=== PATIENT | male | born 1980 | race Caucasian/White ===

== ENCOUNTER 2023-11-19 14:22 | Inpatient (IN) | payer OTHER, SELFPAY ==
--- NOTE | 2023-11-19 | ECG_ITS ---
Test Reason : CHEST PAIN Blood Pressure : / mmHG Vent. Rate : 080 BPM Atrial Rate : 080 BPM P-R Int : 116 ms QRS Dur : 102 ms QT Int : 342 ms P-R-T Axes : 077 072 010 degrees QTc Int : 394 ms Normal sinus rhythm Possible Left atrial enlargement Nonspecific T wave abnormality Abnormal ECG No previous ECGs available Referred By: Sia Kathleen Electronically Signed By:PAPO MAYA
[2023-11-19 14:28] VITALS: BP 115/62; PULSE 102; RESP 20; TEMP 36.6; O2SAT 100; BMI 26.6
--- NOTE | 2023-11-19 14:29 | ED_ITS ---
HPI - General Adult General Chief complaint: Psychiatric Symptoms Stated complaint: Crisis Time Seen by Provider: 11/19/23 14:39 Source: patient and family Mode of arrival: ambulatory Limitations: no limitations History of Present Illness HPI narrative: 43 yo male with history of polysubstance abuse, depression/anxiety, who presents to the ER with his mother from home for evaluation of worsening depression and suicidal ideation. He states last night he took 5 xanax and other pills in an attempt to end his life. He admits to using crack daily. Last use last night. No alcohol. He states he used to be on medication for anxiety but his doctor stopped prescribing because he didn't go for follow ups. He states he has a lot going on and I need help. MD complaint: SI Onset (ago): unknown Relieving factors: none Exacerbating factors: none Associated symptoms: denies other symptoms Treatments prior to arrival: none Related Data Allergies Allergy/AdvReac Type Severity Reaction Status Date / Time No Known Allergies Allergy Verified 11/19/23 14:32 Review of Systems 2 Review of Systems: Yes all other systems are reviewed and are negative [facility] Social History Social History Smoked in Last 30 Days: Yes Use of substances other than those prescribed or required for medical reasons: Yes Substance Use Type: Crack/Cocaine and Painkillers Substance Use Frequency: Daily Advance Directives: No Advance Directives Information Provided: Yes Physical Exam ED Vital Signs: Vital Signs - 24 hr 11/19/23 14:28 11/19/23 16:32 Temperature 97.9 F 98.0 F Pulse Rate 102 H 99 Respiratory Rate 20 20 Blood Pressure 115/62 90/57 L Pulse Oximetry 100 100 Oxygen Delivery Method Room Air Room Air BMI result Body Mass Index 26.6 Appearance: Alert. Oriented X3. Tearful and crying Head: normocephalic, atraumatic. Eyes: Pupils equal, round and reactive to light. ENT: Pharynx normal. No tonsillar swelling or exudate. Neck: Normal inspection. Neck supple. CVS: Normal heart rate and rhythm. Pulses normal. Respiratory: No respiratory distress. Breath sounds normal. Abdomen: Soft and nontender. +BS x4 Skin: Skin warm and dry. Normal skin color. Normal skin turgor. No rashes. Extremities: No lower extremity edema. No joint swelling. Neuro/psych: Oriented X 3. No motor deficit. No sensory deficit. CN II-XII intact. Normal speech and cognition. Tearful, anxious, crying. terrible mood, +SI, No AH/VH Course Course Course Narrative: RME- 43 year old male presents for evaluation of depression with suicidal ideation. Patient reports taking 5 xanax yesterday in an attempt to end his life. He also used crack cocaine yesterday. Denies any other substance abuse. Plan for care team evaluation once medically cleared Reevaluation(s) Reevaluation #1: Physician observation started at 16:58. Patient placed in physician observation because patient is awaiting CARE team evaluation for the possible need of inpatient psych admission. At the time observation was started patient's vital signs were stable. Patient is alert and oriented. Neuro exam is non-focal. CV: RRR and lungs are clear. Will continue to monitor. Time: 16:58 Medications Administered Discontinued Medications Generic Name Dose Route Start Last Admin Trade Name Freq PRN Reason Stop Dose Admin Olanzapine 5 mg 11/19/23 14:43 11/19/23 15:39 Olanzapine 5 Mg Tablet PO 11/19/23 14:44 5 mg ONCE ONE Administration Medical Decision Making Medical Decision Making [facility] Narrative: 43 yo male with history of polysubstance abuse/depression/anxiety presenting with SI and attempt with taking xanax and other pills last night. VSS on arrival. Tearful and crying in triage. Once medically cleared will need to get evaluated by the CARE team Differential Diagnosis Differential Diagnoses: The differential diagnosis associated with the presentation includes substance induced mood disorder, acute psychosis, schizophrenia, schizoaffective disorder, PTSD, bipolar disorder, major depression with psychotic features Admission/Observation Consideration of admission/observation: Escalation of care including admission/observation considered Lab Data 11/19/23 15:12 11/19/23 15:12 Labs: Lab Results 11/19/23 11/19/23 Range/Units 15:12 15:16 WBC 9.9 (4.8-10.8) X10*3/uL RBC 5.00 (4.60-5.80) X10*6/uL Hgb 15.4 (14.0-18.0) g/dl Hct 45.0 (42.0-52.0) % MCV 90.0 (80.0-98.0) fL MCH 30.8 (27.0-33.0) pg MCHC 34.2 (31.0-36.0) g/dl RDW 12.8 (11.0-16.0) % Plt Count 262 (160-400) X10*3/uL MPV 9.9 (9.4-12.4) fL Immature Gran % (Auto) 0.2 (0.0-0.4) % Neut % (Auto) 71.1 (45-73) % Lymph % (Auto) 21.1 (20-40) % [place] % (Auto) 5.7 (2-11) % Eos % (Auto) 1.2 (0-4) % Baso % (Auto) 0.7 (0-2) % Lymph # (Auto) 2.1 (1.2-4.9) X10*3/uL [place] # (Auto) 0.6 (0.1-1.2) X10*3/uL Eos # (Auto) 0.1 (0.0-0.4) X10*3/uL Baso # (Auto) 0.1 (0.0-0.2) X10*3/uL Abs Immat Gran (auto) 0.02 (0.00-0.03) X10*3/uL Absolute Neuts (auto) 7.0 (2.0-8.3) x10*3/uL Absolute Nucleated RBC 0.000 (0.0-0.012) X10*3/uL Nucleated RBC % (auto) 0.0 (0.0-0.2) /100WBC Sodium 141 (135-145) mmol/L Potassium 3.9 (3.3-5.1) mmol/L Chloride 104 (96-108) mmol/L Carbon Dioxide 30 H (22-29) mmol/L Anion Gap 11 L (12-20) BUN 10 (9-16) mg/dL Creatinine 0.95 (0.5-1.4) mg/dL Estim Creat Clear Calc 85.4 Estimated GFR > 60 Random Glucose 74 (60-115) mg/dL Calcium 9.8 (8.4-10.2) mg/dL Total Bilirubin 0.5 (0.0-1.0) mg/dL AST 14 (5-37) U/L ALT 8 (0-40) U/L Alkaline Phosphatase 98 (39-117) U/L Total Protein 7.6 (6.5-8.0) g/dL Albumin 4.4 (3.5-5.0) g/dL Salicylates < 5.0 L (15-30) mg/dL Urine Opiates Screen Not Detected (Not Detect) Urine Fentanyl Screen Not Detected (Not Detect) Acetaminophen < 3 (<30) mcg/mL Ur Barbiturates Screen Not Detected (Not Detect) Ur Phencyclidine Scrn Not Detected (Not Detect) Ur Amphetamines Screen Not Detected (Not Detect) U Benzodiazepines Scrn POSITIVE H (Not Detect) Urine Cocaine Screen POSITIVE H (Not Detect) U Marijuana (THC) Screen POSITIVE H (Not Detect) Ethyl Alcohol < 10 mg/dL Independent Interpretation I performed an independent interpretation of an: EKG Interpretation: EKG with normal sinus rhythm, ventricular rate 80 beats per minute, normal QTC, normal ND interval, no ST segment elevations or depressions. Independent Historian Clinical information obtained from an independent historian. History obtained from or confirmed by: Parent Prescription Management I considered prescription management with: Other (antipsychotic) Chronic Conditions Patient?s care impacted by: Other (anxiety) Social Determinants Patient?s care significantly limited by Social Determinants of Health including: Alcoholism and drug addiction in family, Problems related to primary support group and Other Social Determinant of Health Discharge Plan Discharge Clinical Impression: Suicidal ideation Patient Disposition: Still a Patient Interventions: [place]-Suicide Risk Severity Scale Last Done: 11/19/23 15:10 Print Language: Eritrean
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
[2023-11-19 15:16] LABS: MANUAL DIFF FLAG NO
[2023-11-19 15:20] LABS: Basophils Absolute Auto 0.1 X10*3/uL (0.0-0.2); Basophils Percent Auto 0.7 % (0-2); Eosinophils Absolute Auto 0.1 X10*3/uL (0.0-0.4); Eosinophils Percent Auto 1.2 % (0-4); Hemoglobin 15.4 g/dl (14.0-18.0); Imm Gran Abs Auto 0.02 X10*3/uL (0.00-0.03); Imm Gran Pct Auto 0.2 % (0.0-0.4); Lymphocytes Absolute Auto 2.1 X10*3/uL (1.2-4.9); Lymphocytes Percent Auto 21.1 % (20-40); Mean Corpuscular HGB Conc 34.2 g/dl (31.0-36.0); Mean Corpuscular Hemoglobin 30.8 pg (27.0-33.0); Mean Platelet Volume 9.9 fL (9.4-12.4); Monocytes Absolute Auto 0.6 X10*3/uL (0.1-1.2); Monocytes Percent Auto 5.7 % (2-11); Neutrophils Percent Auto 71.1 % (45-73); Platelet Count 262 X10*3/uL (160-400); Red Cell Distribution Width 12.8 % (11.0-16.0); White Blood Count 9.9 X10*3/uL (4.8-10.8)
--- NOTE | 2023-11-19 15:23 | PC.NURSE ---
Pt alerted RN that he has chest pain/tightness, 6/, across his chest, reports it feels like my anxiety . 12 lead ordered and provider aware.
[2023-11-19 15:31] LABS: Amphetamine Screen Urine Not Detected (Not Detect); Barbiturates, Urine Not Detected (Not Detect); Benzodiazepines Screen Urine POSITIVE (Not Detect); Cannabinoid Screen Urine POSITIVE (Not Detect); Cocaine Screen Urine POSITIVE (Not Detect); Fentanyl, urine Not Detected (Not Detect); Opiate Screen Urine Not Detected (Not Detect); Phencyclidine Screen Urine Not Detected (Not Detect)
[2023-11-19 15:34] LABS: Alanine Aminotransferase 8 U/L (0-40); Albumin Level 4.4 g/dL (3.5-5.0); Alkaline Phosphatase 98 U/L (39-117); Anion Gap 11 (12-20); Aspartate Amino Transferase 14 U/L (5-37); Bilirubin Total 0.5 mg/dL (0.0-1.0); Blood Urea Nitrogen 10 mg/dL (9-16); Calcium 9.8 mg/dL (8.4-10.2); Carbon Dioxide 30 mmol/L (22-29); Chloride 104 mmol/L (96-108); Creatinine Clr Calc Pharmacy 85.4; Estimated Glomerular Filt Rate > 60; Ethanol < 10 mg/dL; Glucose Random 74 mg/dL (60-115); Potassium 3.9 mmol/L (3.3-5.1); Sodium 141 mmol/L (135-145); Total Protein 7.6 g/dL (6.5-8.0)
[2023-11-19] MEDS: OLANZapine 5 MG TABLET PO (15:39)
[2023-11-19 15:41] LABS: Acetaminophen LAB < 3 mcg/mL (<30)
[2023-11-19 16:32] VITALS: BP 90/57; PULSE 99; RESP 20; TEMP 36.7; O2SAT 100
[2023-11-19 16:47] LABS: Salicylate < 5.0 mg/dL (15-30)
[2023-11-19 17:37] LABS: Appearance Urine Clear; Color Urine Yellow; Glucose Urine UA Negative (Negative); Leukocyte Esterase Urine Negative (Negative); Nitrite Urine Negative (Negative); PH 6.5 (5.0-9.0); Specific Gravity - Urine 1.015 (1.005-1.025); Urine Blood Negative (Negative); Urine Ketones Negative (Negative); Urine Protein Negative (Neg-Trace)
[2023-11-19 17:42] LABS: Bacteria Urine None Seen (None Seen); Hyaline Casts Urine 0-2 /LPF (0-2); RBC Urine 0-2 /HPF (0-2); Squamous Epithelial Cell Urine 0-2 /HPF (0-2); WBC Urine 0-5 /HPF (0-5)
--- NOTE | 2023-11-19 18:27 | PC.NURSE ---
Spoke with patient regarding home meds, patient stating he was prescribed xanax a long time ago but has not been able to have it re filled
--- NOTE | 2023-11-19 20:02 | MHC.CARE ---
Late Entry* At approx 1830, CARE Team attempted to meet with the pt. Pt was not making any sense and was mumbling his words together. CARE Team attempted to call his mother, but the number was wrong in the chart. CARE Team will attempt to meet with the pt again at a later time in the night.
--- NOTE | 2023-11-19 20:42 | PC.NURSE ---
Pt is asleep in bed, no complaints at this time. Still pending CARE team
[2023-11-19 21:10] VITALS: BP 126/83; PULSE 93; RESP 18; TEMP 36.8; O2SAT 99
--- NOTE | 2023-11-20 02:11 | PC.NURSE ---
Pt woke up to eat some food, resting in bed at this time.
--- NOTE | 2023-11-20 05:15 | PC.NURSE ---
Pt woke up to get a drink of water. Vitals obtained, pt resting in bed at this time.
[2023-11-20 05:31] VITALS: BP 105/78; PULSE 95; RESP 17; TEMP 36.4; O2SAT 100
--- NOTE | 2023-11-20 07:05 | PC.NURSE ---
Assumed care of patient at 0645, patient appears to be sleeping at this time, respirations even and unlabored, no apparent distress. Continue plan of care for Sec 12 inpatient bedsearch
[2023-11-20 08:43] LABS: COVID-19 Test Negative (Negative); IDNOW Serial# 152EDE1D
[2023-11-20] MEDS: OLANZapine 5 MG TABLET PO ×2 (10:06→19:16)
--- NOTE | 2023-11-20 13:15 | PC.NURSE ---
M3 nurse here to bring patient up, security called for transport. Belongings/lunch tray sent with patient up to floor.
[2023-11-20] MEDS: hydrOXYzine HCL 25 MG TABLET PO ×2 (13:57→20:40)
[2023-11-20 14:27] VITALS: BP 153/89; PULSE 67; RESP 20; TEMP 36.7; O2SAT 89
--- NOTE | 2023-11-20 15:53 | PC.NURSE ---
Patient signed a 3 day 11/19, up on Saturday11/25/23
--- NOTE | 2023-11-20 15:54 | PC.ADMIT ---
Pt is a 43 y/o tristanian speaking male admitted from the ED on a CV. Pt presented after saying he took 5 Xanax and other pills in an attempted OD. Pt reported increased anxiety and depression. Pts tox screen was positive for cocaine , THC, benzodiazapines. Pt reports using Xanax just prior to coming to the hospital and uses crack daily. Pts mood is angry and affect is congruent with mood. Pt was offered lunch in safety box, took one bite and threw the box across the bed. Pts speech is tense and mumbled. Pt was short and dismissive in responses, refusing to answer most questions. When asked what brought him to the hospital, he replied, nothing that's why I want the f*ck out of here. Pt completed most responses with I want to leave . Pt had received tx in the community , but that is unknown, he hasn't been on medications for some time per the intake. Pt refused to sign any legals for TW, safety tool left with pt to complete. Pt offered and took Atarax prn as ordered and napped. Pt offered phone for #'s, refused to have staff make copy of numbers. Pt placed on 15 minute checks.
[2023-11-20 19:30] VITALS: BP 113/75; PULSE 65; RESP 18; TEMP 36.8; O2SAT 100
[2023-11-20] MEDS: traZODone HCL 50 MG TABLET PO (20:40)
[2023-11-21 07:00] VITALS: BMI 26.5
[2023-11-21 08:00] VITALS: BP 105/56; PULSE 63; RESP 16; TEMP 36.9; O2SAT 100
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
[2023-11-21] MEDS: OLANZapine 5 MG TABLET PO ×3 (09:43→20:48)
[2023-11-21] MEDS: hydrOXYzine HCL 25 MG TABLET PO (09:43)
[2023-11-21 11:22] LABS: Alanine Aminotransferase 12 U/L (0-40); Albumin Level 3.9 g/dL (3.5-5.0); Alkaline Phosphatase 81 U/L (39-117); Anion Gap 7 (12-20); Aspartate Amino Transferase 13 U/L (5-37); Bilirubin Total 0.2 mg/dL (0.0-1.0); Blood Urea Nitrogen 11 mg/dL (9-16); Calcium 9.3 mg/dL (8.4-10.2); Carbon Dioxide 31 mmol/L (22-29); Chloride 108 mmol/L (96-108); Cholesterol 127 mg/dL (<200); Creatinine Clr Calc Pharmacy 83.6; Estimated Glomerular Filt Rate > 60; Glucose Fasting 61 mg/dL (60-99); HDL Cholesterol 32 mg/dL (>40); LDL Cholesterol Calculated 78 mg/dL (<100); Potassium 3.9 mmol/L (3.3-5.1); Sodium 142 mmol/L (135-145); Total Protein 6.6 g/dL (6.5-8.0); Triglycerides 89 mg/dL (<150)
--- NOTE | 2023-11-21 12:20 | MHC.CARE ---
Ulysses at [facility] authorized 6 days 11/20/23-11/25/23 [id number] Evaluation faxed
[2023-11-21 15:05] VITALS: BP 129/90
[2023-11-21] MEDS: cloNIDine HCL 0.1 MG TABLET PO ×2 (15:05→20:47)
[2023-11-21] MEDS: FLUoxetine HCl Oral Solution 20 MG/5 ML SOLUTION 10 MG PO (15:05)
[2023-11-21] MEDS: hydrOXYzine HCL 50 MG TABLET PO ×2 (15:05→20:48)
[2023-11-21] MEDS: QUEtiapine Fumarate 25 MG TABLET PO ×2 (15:08→20:48)
[2023-11-21 19:35] VITALS: BP 128/73; PULSE 70; RESP 18; TEMP 36.2; O2SAT 100
[2023-11-21 20:47] VITALS: BP 128/73
[2023-11-21] MEDS: traZODone HCL 50 MG TABLET PO (20:48)
[2023-11-22 07:50] VITALS: BP 88/55; PULSE 62; RESP 14; TEMP 36.7; O2SAT 98
[2023-11-22] MEDS: FLUoxetine HCl Oral Solution 20 MG/5 ML SOLUTION 10 MG PO (08:15)
--- NOTE | 2023-11-22 08:17 | PC.NURSE ---
Pt's blood pressure was 88/55. Clonidine was held. RN will check blood pressure again after breakfast and reassess.
--- NOTE | 2023-11-22 09:06 | P.PNPSI_ITS ---
Subjective Subjective Date of Service: 11/22/23 Reason For Visit: Crisis Subjective Notes: 3 Day Interim History: Reviewed with Dr. Shukla. Keeping to self. guarded. Pt reports feeling anxious today; pt stated, I never had thoughts of suicide. I don't want to leave my room because I don't want to deal with the yelling on the unit. I'm just waiting for a program . pt denies SI/HI/VH/AH. Medication Compliance: Yes Side effects from medications: No Attending Groups: No Review of Systems Constitutional: Reports as per HPI Eyes: Reports as per HPI Reports as per HPI Cardiovascular: Reports as per HPI Respiratory: Reports as per HPI Gastrointestinal: Reports as per HPI Genitourinary: Reports as per HPI Musculoskeletal: Reports as per HPI Skin/Breast: Reports as per HPI Reports as per HPI Psychiatric: Reports as per HPI Endocrine: Reports as per HPI Hematologic/Lymphatic: Reports as per HPI Allergic/Immunologic: Reports as per HPI Mental Status Exam Mental Status Exam Narrative: Pt is alert and oriented; behavior is cooperative, anxious; dressed in hospital attire; mood is described as anxious ; eye contact appropriate; Speech is normal rate, volume and prosody and not pressured; thought process is organized and goal directed; Thought content is on tx; otherwise pertinent to relevant topics and without any delusional content, paranoid ideations or grandiosity; denies SI/HI/VH/AH. Diagnostics Vital Signs (24Hr): Vital Signs - 24 hr 11/21/23 15:05 11/21/23 19:35 11/21/23 20:47 Temperature 97.1 F Pulse Rate 70 Respiratory Rate 18 Blood Pressure 129/90 H 128/73 128/73 Pulse Oximetry 100 Oxygen Delivery Method Room Air 11/22/23 07:50 Temperature 98.0 F Pulse Rate 62 Respiratory Rate 14 Blood Pressure 88/55 L Pulse Oximetry 98 Oxygen Delivery Method Room Air BMI result Body Mass Index 26.5 Labs 11/19/23 15:12 11/21/23 10:27 Labs: Laboratory Results - last 48 hr 11/21/23 10:27 Sodium 142 Potassium 3.9 Chloride 108 Carbon Dioxide 31 H Anion Gap 7 L BUN 11 Creatinine 0.97 Estim Creat Clear Calc 83.6 Estimated GFR > 60 Fasting Glucose 61 Calcium 9.3 Total Bilirubin 0.2 AST 13 ALT 12 Alkaline Phosphatase 81 Total Protein 6.6 Albumin 3.9 Triglycerides 89 Cholesterol 127 LDL Cholesterol, Calc 78 HDL Cholesterol 32 L Medications Medications Current Medications Acetaminophen (Acetaminophen 325 Mg Tablet) 650 mg PO Q6H PRN PRN Reason: Headache/Pain Mild Scale (1-3) Al Hydroxide/Mg Hydroxide (Magnesium Hydrox/Alum Hydrox 30 Ml Oral.Susp) 30 ml PO Q6H PRN PRN Reason: Heartburn/Nausea Clonidine HCl (Clonidine Hcl 0.1 Mg Tablet) 0.1 mg PO BID [facility]; Protocol Last Admin: 11/21/23 20:47 Dose: 0.1 mg Fluoxetine HCl (Fluoxetine Hcl Oral Solution 20 Mg/5 Ml Solution) 10 mg PO DAILY [facility] Last Admin: 11/22/23 08:15 Dose: 10 mg Hydroxyzine HCl (Hydroxyzine Hcl 50 Mg Tablet) 50 mg PO Q6H PRN PRN Reason: Anxiety Last Admin: 11/21/23 20:48 Dose: 50 mg Magnesium Hydroxide (Milk Of Magnesia 30 Ml Oral.Susp) 30 ml PO DAILY PRN PRN Reason: Constipation Nicotine (Nicotine 21 Mg Patch.Td24) 21 mg TRANSDERMA DAILY [facility] Last Admin: 11/22/23 08:16 Dose: Not Given Nicotine Polacrilex (Nicotine Polacrilex 2 Mg Gum) 4 mg BUCCAL Q2H PRN PRN Reason: Nicotine Cravings Olanzapine (Olanzapine 5 Mg Tablet) 5 mg PO Q4H PRN PRN Reason: agitation Last Admin: 11/21/23 20:48 Dose: 5 mg Quetiapine Fumarate (Quetiapine Fumarate 25 Mg Tablet) 25 mg PO TID PRN PRN Reason: Anxiety Last Admin: 11/21/23 20:48 Dose: 25 mg Trazodone HCl (Trazodone Hcl 50 Mg Tablet) 50 mg PO BEDTIME MRX1 PRN PRN Reason: Insomnia Last Admin: 11/21/23 20:48 Dose: 50 mg Allergies Allergies Allergy/AdvReac Type Severity Reaction Status Date / Time No Known Allergies Allergy Verified 11/19/23 14:32 Assessment & Plan Assessment & Plan (1) MDD (major depressive disorder), recurrent episode: Status: Acute Code(s): F33.9 - Major depressive disorder, recurrent, unspecified (2) Cocaine use disorder: Status: Acute Code(s): F14.10 - Cocaine abuse, uncomplicated (3) Opioid use disorder: Status: Acute Code(s): F11.90 - Opioid use, unspecified, uncomplicated Plan Patient is a 43 year old male with hx of MDD, cocaine use d/o and opioid use d/o who self presented to [facility] ER d/t suicidal ideation secondary to increased depression and substance use. Plan: CV/ pt signed 3 day notice 15 minute safety checks referral to outpatient therapist and psychiatrist referral to substance abuse program addiction medicine consult encourage group participation Start: Prozac 10mg PO daily clonidine 0.1mg PO BID seroquel 25mg PO TID PRN 11/21: Keeping to self. guarded. Pt reports feeling anxious today; pt stated, I never had thoughts of suicide. I don't want to leave my room because I don't want to deal with the yelling on the unit. I'm just waiting for a program . pt denies SI/HI/VH/AH. continue current tx plan. Patient educated on: diagnosis, medication risk/benefits, substance abuse and therapeutic strategies Informed Consent: understands Reason for continued inpatient stay Substantial Risk for: med/psych decompensation Time Spent With Patient Time: Total time managing care of this patient today _20___ minutes.
[2023-11-22 09:23] VITALS: BP 105/60; PULSE 70
[2023-11-22 09:26] VITALS: BP 105/60
[2023-11-22] MEDS: cloNIDine HCL 0.1 MG TABLET PO ×2 (09:26→20:34)
[2023-11-22] MEDS: QUEtiapine Fumarate 25 MG TABLET PO ×3 (09:26→22:08)
--- NOTE | 2023-11-22 10:59 | MHC.RECOVRN ---
Met with pt in 307 after consult placed to Addiction Medicine for middle school coach and possible methadone/Suboxone. Pt had presented to the ED after overdose attempt with cocaine, marijuana, Percocet, Xanax. Denies alcohol use, help seeking. Upon evaluation, pt admitted to [facility] with MDD, cocaine use disorder, opioid use disorder. Pts UDS positive for benzodiazepines, cocaine, marijuana. Pt laying in bed, awake, alert, easily engages in conversation. Pt reports Percocet use, however, has difficulty explaining amount/frequency. Pt reports 10 mg daily, last use approx 1 week ago. Pt denies withdrawal symptoms, appears comfortable. Pt reports cocaine use, INH, 7 grams daily x 2 weeks. Pt reports he has used cocaine since his 20s and has not had significant time in recovery. Pt denies hx treatment for POONAM, reports this is his first time seeking help. Pt tearful during conversation at times, reports anxiety and racing thoughts. Discussed recovery support resources and options, pt interested in medication for stimulant use disorder. Pt not appropriate for MOUD at this time. Educated pt on other supports and resources, pt interested in middle school coach. Will have high school football coach see patient on Saturday if pt is still here. Provided pt with written resources/support information. Pt denies questions or concerns for t/w. Discussed with Ena Tolentino APRN.
[2023-11-22] MEDS: hydrOXYzine HCL 50 MG TABLET PO ×2 (12:38→20:33)
[2023-11-22] MEDS: OLANZapine 5 MG TABLET PO ×2 (12:38→17:00)
--- NOTE | 2023-11-22 16:35 | PM.EVENT ---
Event Note Date of Service: 11/22/23 Event Note: Addiction follow up Patient seen by family health nurse practitioner Reporting cravings for stimulants and looking to address that Discussed with attending provider will start topiramate 25mg BID with plan to increase to 50mg BID in a week or so if patient tolerates Time Spent With Patient Time: Total time managing care of this patient today ____ minutes.
[2023-11-22] MEDS: Gabapentin 300 MG CAPSULE PO ×2 (18:58→20:33)
[2023-11-22] MEDS: LORazepam 1 MG TABLET 2 MG PO (18:58)
[2023-11-22] MEDS: traZODone HCL 50 MG TABLET PO ×2 (20:33→22:08)
[2023-11-22 20:34] VITALS: BP 129/74
[2023-11-22] MEDS: Topiramate 25 MG TABLET PO (20:35)
[2023-11-22 20:41] VITALS: BP 129/74; PULSE 71; RESP 16; TEMP 37.1; O2SAT 100
--- NOTE | 2023-11-23 00:41 | PC.NURSE ---
CIWA-when reviewing CIWA protocal earlier in shift refused to be awoken for assessment. observed sleeping. respirations even and unlabored.
[2023-11-23 07:55] VITALS: BP 113/65; PULSE 92; RESP 16; TEMP 36.5; O2SAT 99
--- NOTE | 2023-11-23 08:36 | P.PNPSI_ITS ---
Subjective Subjective Date of Service: 11/23/23 Reason For Visit: Crisis Subjective Notes: Section 7 Interim History: Patient was seen and discussed in rounds today. Records and plans were reviewed. He does have a 3 day notice and. He states that none of the anxiety medications are helpful. No signs of withdrawals. I increased his Seroquel to 50 mg p.r.n.. He was started on Topamax for cocaine cravings. Eating and sleeping adequately. No other changes were made Medication Compliance: Yes Side effects from medications: No Attending Groups: Intermittent Mental Status Exam Mental Status Exam Narrative: In today's visit he is alert, oriented and pleasant. Normal speech. Moderate eye contact. Affect is appropriate. No overt signs of lability. No overt signs of psychosis. No SI. Cognitively intact. No abnormalities of gait. No musculoskeletal difficulties. Diagnostics Vital Signs (24Hr): Vital Signs - 24 hr 11/22/23 09:23 11/22/23 09:26 11/22/23 20:34 Temperature Pulse Rate 70 Respiratory Rate Blood Pressure 105/60 105/60 129/74 Pulse Oximetry Oxygen Delivery Method 11/22/23 20:41 11/23/23 07:55 Temperature 98.8 F 97.7 F Pulse Rate 71 92 Respiratory Rate 16 16 Blood Pressure 129/74 113/65 Pulse Oximetry 100 99 Oxygen Delivery Method Room Air Room Air BMI result Body Mass Index 26.5 Labs 11/19/23 15:12 11/21/23 10:27 Labs: Laboratory Results - last 48 hr 11/21/23 10:27 Sodium 142 Potassium 3.9 Chloride 108 Carbon Dioxide 31 H Anion Gap 7 L BUN 11 Creatinine 0.97 Estim Creat Clear Calc 83.6 Estimated GFR > 60 Fasting Glucose 61 Calcium 9.3 Total Bilirubin 0.2 AST 13 ALT 12 Alkaline Phosphatase 81 Total Protein 6.6 Albumin 3.9 Triglycerides 89 Cholesterol 127 LDL Cholesterol, Calc 78 HDL Cholesterol 32 L Medications Medications Current Medications Acetaminophen (Acetaminophen 325 Mg Tablet) 650 mg PO Q6H PRN PRN Reason: Headache/Pain Mild Scale (1-3) Al Hydroxide/Mg Hydroxide (Magnesium Hydrox/Alum Hydrox 30 Ml Oral.Susp) 30 ml PO Q6H PRN PRN Reason: Heartburn/Nausea Clonidine HCl (Clonidine Hcl 0.1 Mg Tablet) 0.1 mg PO BID [facility]; Protocol Last Admin: 04/19/24 20:34 Dose: 0.1 mg Fluoxetine HCl (Fluoxetine Hcl Oral Solution 20 Mg/5 Ml Solution) 10 mg PO DAILY [facility] Last Admin: 11/22/23 08:15 Dose: 10 mg Gabapentin (Gabapentin 300 Mg Capsule) 300 mg PO TID [facility] Last Admin: 11/22/23 20:33 Dose: 300 mg Hydroxyzine HCl (Hydroxyzine Hcl 50 Mg Tablet) 50 mg PO Q6H PRN PRN Reason: Anxiety Last Admin: 11/22/23 20:33 Dose: 50 mg Lorazepam (Lorazepam 1 Mg Tablet) 1 mg PO Q2H PRN PRN Reason: CIWA 6-10 Lorazepam (Lorazepam 1 Mg Tablet) 2 mg PO Q2H PRN PRN Reason: CIWA 11 and above Magnesium Hydroxide (Milk Of Magnesia 30 Ml Oral.Susp) 30 ml PO DAILY PRN PRN Reason: Constipation Nicotine (Nicotine 21 Mg Patch.Td24) 21 mg TRANSDERMA DAILY [facility] Last Admin: 11/22/23 08:16 Dose: Not Given Nicotine Polacrilex (Nicotine Polacrilex 2 Mg Gum) 4 mg BUCCAL Q2H PRN PRN Reason: Nicotine Cravings Olanzapine (Olanzapine 5 Mg Tablet) 5 mg PO Q4H PRN PRN Reason: agitation Last Admin: 11/22/23 17:00 Dose: 5 mg Quetiapine Fumarate (Quetiapine Fumarate 50 Mg Tablet) 50 mg PO TID PRN PRN Reason: Anxiety Topiramate (Topiramate 25 Mg Tablet) 25 mg PO BID [facility] Last Admin: 11/22/23 20:35 Dose: 25 mg Trazodone HCl (Trazodone Hcl 50 Mg Tablet) 50 mg PO BEDTIME MRX1 PRN PRN Reason: Insomnia Last Admin: 11/22/23 22:08 Dose: 50 mg Allergies Allergies Allergy/AdvReac Type Severity Reaction Status Date / Time No Known Allergies Allergy Verified 11/19/23 14:32 Assessment & Plan Assessment & Plan (1) MDD (major depressive disorder), recurrent episode: Status: Acute Code(s): F33.9 - Major depressive disorder, recurrent, unspecified (2) Cocaine use disorder: Status: Acute Code(s): F14.10 - Cocaine abuse, uncomplicated (3) Opioid use disorder: Status: Acute Code(s): F11.90 - Opioid use, unspecified, uncomplicated Plan Patient is a 43 year old male with hx of MDD, cocaine use d/o and opioid use d/o who self presented to [facility] d/t suicidal ideation secondary to increased depression and substance use. Plan: CV/ pt signed 3 day notice 15 minute safety checks referral to outpatient therapist and psychiatrist referral to substance abuse program addiction medicine consult encourage group participation Start: Prozac 10mg PO daily clonidine 0.1mg PO BID seroquel 25mg PO TID PRN 11/21: Keeping to self. guarded. Pt reports feeling anxious today; pt stated, I never had thoughts of suicide. I don't want to leave my room because I don't want to deal with the yelling on the unit. I'm just waiting for a program . pt denies SI/HI/VH/AH. continue current tx plan. 11/23/2023: Continue current regimen and plans. Increase Seroquel to 50 mg t.i.d. p.r.n. Patient educated on: medication risk/benefits Reason for continued inpatient stay Substantial Risk for: med/psych decompensation Time Spent With Patient Time: Total time managing care of this patient today ____ minutes.
[2023-11-23 09:03] VITALS: BP 113/65
[2023-11-23] MEDS: cloNIDine HCL 0.1 MG TABLET PO ×2 (09:03→20:17)
[2023-11-23] MEDS: Topiramate 25 MG TABLET PO ×2 (09:05→16:18)
[2023-11-23] MEDS: hydrOXYzine HCL 50 MG TABLET PO ×2 (09:09→15:34)
[2023-11-23] MEDS: Gabapentin 300 MG CAPSULE PO ×3 (09:09→20:17)
[2023-11-23] MEDS: QUEtiapine Fumarate 50 MG TABLET PO ×3 (09:09→21:46)
[2023-11-23] MEDS: FLUoxetine HCl 10 MG CAPSULE PO (09:09)
[2023-11-23] MEDS: OLANZapine 5 MG TABLET PO ×2 (11:23→15:34)
[2023-11-23 20:17] VITALS: BP 136/78
[2023-11-23] MEDS: traZODone HCL 50 MG TABLET PO ×2 (20:18→21:46)
[2023-11-23 20:20] VITALS: BP 136/78; PULSE 77; RESP 14; TEMP 36.6; O2SAT 100
[2023-11-24] MEDS: FLUoxetine HCl 10 MG CAPSULE PO (08:01)
[2023-11-24] MEDS: QUEtiapine Fumarate 50 MG TABLET PO (08:01)
[2023-11-24 08:02] VITALS: BP 124/65
[2023-11-24] MEDS: Topiramate 25 MG TABLET 50 MG PO ×2 (08:02→15:42)
[2023-11-24] MEDS: cloNIDine HCL 0.1 MG TABLET PO ×2 (08:02→21:07)
[2023-11-24] MEDS: Gabapentin 300 MG CAPSULE PO ×3 (08:03→21:07)
[2023-11-24 08:10] VITALS: BP 124/65; PULSE 70; RESP 12; TEMP 36.8; O2SAT 98
--- NOTE | 2023-11-24 09:10 | HO.PSYCHPN ---
Subjective Subjective Date of Service: 11/24/23 Reason For Visit: Crisis Subjective Notes: Section 7 Interim History: Patient was seen and discussed in rounds today. Records and plans were reviewed. He has been doing better and is not scoring on the CIWA protocol and it was discontinued today. Does have some racing thoughts at times. Or focus. He still has cravings and states that the Topamax is helpful which I increased to 50 mg b.i.d.. Slept well and is eating well. No SI. No other changes were made Medication Compliance: Yes Side effects from medications: No Attending Groups: Intermittent Review of Systems Review of Systems Yes all other systems are reviewed and are negative Mental Status Exam Mental Status Exam Narrative: In today's visit he is alert, oriented and pleasant. Normal speech. Moderate eye contact. Affect is appropriate. No overt signs of lability. No overt signs of psychosis. No SI. Cognitively intact. No abnormalities of gait. No musculoskeletal difficulties. Diagnostics Vital Signs (24Hr): Vital Signs - 24 hr 11/23/23 20:17 11/23/23 20:20 11/24/23 08:02 Temperature 97.9 F Pulse Rate 77 Respiratory Rate 14 Blood Pressure 136/78 136/78 124/65 Pulse Oximetry 100 Oxygen Delivery Method Room Air 11/24/23 08:10 Temperature 98.3 F Pulse Rate 70 Respiratory Rate 12 Blood Pressure 124/65 Pulse Oximetry 98 Oxygen Delivery Method Room Air BMI result Body Mass Index 26.5 Labs 11/19/23 15:12 11/21/23 10:27 Medications Medications Current Medications Acetaminophen (Acetaminophen 325 Mg Tablet) 650 mg PO Q6H PRN PRN Reason: Headache/Pain Mild Scale (1-3) Al Hydroxide/Mg Hydroxide (Magnesium Hydrox/Alum Hydrox 30 Ml Oral.Susp) 30 ml PO Q6H PRN PRN Reason: Heartburn/Nausea Clonidine HCl (Clonidine Hcl 0.1 Mg Tablet) 0.1 mg PO BID [facility]; Protocol Last Admin: 11/24/23 08:02 Dose: 0.1 mg Fluoxetine HCl (Fluoxetine Hcl 10 Mg Capsule) 10 mg PO DAILY [facility] Last Admin: 11/24/23 08:01 Dose: 10 mg Gabapentin (Gabapentin 300 Mg Capsule) 300 mg PO TID [facility] Last Admin: 11/24/23 08:03 Dose: 300 mg Hydroxyzine HCl (Hydroxyzine Hcl 50 Mg Tablet) 50 mg PO Q6H PRN PRN Reason: Anxiety Last Admin: 11/23/23 15:34 Dose: 50 mg Magnesium Hydroxide (Milk Of Magnesia 30 Ml Oral.Susp) 30 ml PO DAILY PRN PRN Reason: Constipation Nicotine (Nicotine 21 Mg Patch.Td24) 21 mg TRANSDERMA DAILY [facility] Last Admin: 11/24/23 08:03 Dose: Not Given Nicotine Polacrilex (Nicotine Polacrilex 2 Mg Gum) 4 mg BUCCAL Q2H PRN PRN Reason: Nicotine Cravings Olanzapine (Olanzapine 5 Mg Tablet) 5 mg PO Q4H PRN PRN Reason: agitation Last Admin: 11/23/23 15:34 Dose: 5 mg Quetiapine Fumarate (Quetiapine Fumarate 50 Mg Tablet) 50 mg PO TID PRN PRN Reason: Anxiety Last Admin: 11/24/23 08:01 Dose: 50 mg Topiramate (Topiramate 25 Mg Tablet) 50 mg PO 0900,1600 [facility] Last Admin: 11/24/23 08:02 Dose: 50 mg Trazodone HCl (Trazodone Hcl 50 Mg Tablet) 50 mg PO BEDTIME MRX1 PRN PRN Reason: Insomnia Last Admin: 11/23/23 21:46 Dose: 50 mg Allergies Allergies Allergy/AdvReac Type Severity Reaction Status Date / Time No Known Allergies Allergy Verified 11/19/23 14:32 Assessment & Plan Assessment & Plan (1) MDD (major depressive disorder), recurrent episode: Status: Acute Code(s): F33.9 - Major depressive disorder, recurrent, unspecified (2) Cocaine use disorder: Status: Acute Code(s): F14.10 - Cocaine abuse, uncomplicated (3) Opioid use disorder: Status: Acute Code(s): F11.90 - Opioid use, unspecified, uncomplicated Plan Patient is a 43 year old male with hx of MDD, cocaine use d/o and opioid use d/o who self presented to [facility] [place] [facility] d/t suicidal ideation secondary to increased depression and substance use. Plan: CV/ pt signed 3 day notice 15 minute safety checks referral to outpatient therapist and psychiatrist referral to substance abuse program addiction medicine consult encourage group participation Start: Prozac 10mg PO daily clonidine 0.1mg PO BID seroquel 25mg PO TID PRN 11/21: Keeping to self. guarded. Pt reports feeling anxious today; pt stated, I never had thoughts of suicide. I don't want to leave my room because I don't want to deal with the yelling on the unit. I'm just waiting for a program . pt denies SI/HI/VH/AH. continue current tx plan. 11/23/2023: Continue current regimen and plans. Increase Seroquel to 50 mg t.i.d. p.r.n. 11/24/2023: Continue current regimen and plans Reason for continued inpatient stay Substantial Risk for: med/psych decompensation Time Spent With Patient Time: Total time managing care of this patient today ____ minutes.
[2023-11-24] MEDS: hydrOXYzine HCL 50 MG TABLET PO ×2 (11:35→18:33)
[2023-11-24] MEDS: QUEtiapine Fumarate 25 MG TABLET 75 MG PO ×2 (13:30→22:36)
[2023-11-24] MEDS: OLANZapine 5 MG TABLET PO (18:33)
[2023-11-24 20:00] VITALS: BP 116/77; PULSE 78; RESP 16; TEMP 36.9; O2SAT 100
[2023-11-24 21:07] VITALS: BP 116/77; PULSE 78; RESP 16; TEMP 36.9; O2SAT 100
[2023-11-24] MEDS: traZODone HCL 50 MG TABLET PO ×2 (21:25→22:36)
[2023-11-24] MEDS: Acetaminophen 325 MG TABLET 650 MG PO (21:41)
[2023-11-25] MEDS: hydrOXYzine HCL 50 MG TABLET PO (04:28)
[2023-11-25] MEDS: QUEtiapine Fumarate 25 MG TABLET 75 MG PO (04:28)
[2023-11-25 07:25] VITALS: BP 130/70; PULSE 91; RESP 14; TEMP 36.6; O2SAT 99
[2023-11-25 08:30] VITALS: BP 130/70
[2023-11-25] MEDS: Topiramate 25 MG TABLET 50 MG PO (08:30)
[2023-11-25] MEDS: FLUoxetine HCl 10 MG CAPSULE PO (08:30)
[2023-11-25] MEDS: cloNIDine HCL 0.1 MG TABLET PO (08:30)
[2023-11-25] MEDS: Gabapentin 300 MG CAPSULE PO (08:30)
--- NOTE | 2023-11-25 08:57 | P.PNPSI_ITS ---
Subjective Subjective Reason For Visit: Crisis Diagnostics Vital Signs (24Hr): Vital Signs - 24 hr 11/24/23 20:00 11/24/23 21:07 11/24/23 21:07 Temperature 98.4 F 98.4 F Pulse Rate 78 78 Respiratory Rate 16 16 Blood Pressure 116/77 116/77 116/77 Pulse Oximetry 100 100 Oxygen Delivery Method Room Air Room Air 11/25/23 07:25 11/25/23 08:30 Temperature 97.8 F Pulse Rate 91 Respiratory Rate 14 Blood Pressure 130/70 130/70 Pulse Oximetry 99 Oxygen Delivery Method Room Air BMI result Body Mass Index 26.5 Labs 11/19/23 15:12 11/21/23 10:27 Medications Medications Current Medications Acetaminophen (Acetaminophen 325 Mg Tablet) 650 mg PO Q6H PRN PRN Reason: Headache/Pain Mild Scale (1-3) Last Admin: 11/24/23 21:41 Dose: 650 mg Al Hydroxide/Mg Hydroxide (Magnesium Hydrox/Alum Hydrox 30 Ml Oral.Susp) 30 ml PO Q6H PRN PRN Reason: Heartburn/Nausea Clonidine HCl (Clonidine Hcl 0.1 Mg Tablet) 0.1 mg PO BID [facility]; Protocol Last Admin: 11/25/23 08:30 Dose: 0.1 mg Fluoxetine HCl (Fluoxetine Hcl 10 Mg Capsule) 10 mg PO DAILY [facility] Last Admin: 11/25/23 08:30 Dose: 10 mg Gabapentin (Gabapentin 300 Mg Capsule) 300 mg PO TID [facility] Last Admin: 11/25/23 08:30 Dose: 300 mg Hydroxyzine HCl (Hydroxyzine Hcl 50 Mg Tablet) 50 mg PO Q6H PRN PRN Reason: Anxiety Last Admin: 11/25/23 04:28 Dose: 50 mg Magnesium Hydroxide (Milk Of Magnesia 30 Ml Oral.Susp) 30 ml PO DAILY PRN PRN Reason: Constipation Nicotine (Nicotine 21 Mg Patch.Td24) 21 mg TRANSDERMA DAILY [facility] Last Admin: 11/25/23 08:33 Dose: Not Given Nicotine Polacrilex (Nicotine Polacrilex 2 Mg Gum) 4 mg BUCCAL Q2H PRN PRN Reason: Nicotine Cravings Olanzapine (Olanzapine 5 Mg Tablet) 5 mg PO Q4H PRN PRN Reason: agitation Last Admin: 11/24/23 18:33 Dose: 5 mg Quetiapine Fumarate (Quetiapine Fumarate 25 Mg Tablet) 75 mg PO TID PRN PRN Reason: Anxiety Last Admin: 11/25/23 04:28 Dose: 75 mg Topiramate (Topiramate 25 Mg Tablet) 50 mg PO 0900,1600 [facility] Last Admin: 11/25/23 08:30 Dose: 50 mg Trazodone HCl (Trazodone Hcl 50 Mg Tablet) 50 mg PO BEDTIME MRX1 PRN PRN Reason: Insomnia Last Admin: 11/24/23 22:36 Dose: 50 mg Allergies Allergies Allergy/AdvReac Type Severity Reaction Status Date / Time No Known Allergies Allergy Verified 11/19/23 14:32 Assessment & Plan Assessment & Plan (1) MDD (major depressive disorder), recurrent episode: Status: Acute Code(s): F33.9 - Major depressive disorder, recurrent, unspecified (2) Cocaine use disorder: Status: Acute Code(s): F14.10 - Cocaine abuse, uncomplicated (3) Opioid use disorder: Status: Acute Code(s): F11.90 - Opioid use, unspecified, uncomplicated Plan Patient is a 43 year old male with hx of MDD, cocaine use d/o and opioid use d/o who self [place] [facility] [place]/t suicidal ideation secondary to increased depression and substance use. Plan: CV/ pt signed 3 day notice 15 minute safety checks referral to outpatient therapist and psychiatrist referral to substance abuse program addiction medicine consult encourage group participation Start: Prozac 10mg PO daily clonidine 0.1mg PO BID seroquel 25mg PO TID PRN 11/21: Keeping to self. guarded. Pt reports feeling anxious today; pt stated, I never had thoughts of suicide. I don't want to leave my room because I don't want to deal with the yelling on the unit. I'm just waiting for a program . pt denies SI/HI/VH/AH. continue current tx plan. 11/23/2023: Continue current regimen and plans. Increase Seroquel to 50 mg t.i.d. p.r.n. 11/24/2023: Continue current regimen and plans Time Spent With Patient Time: Total time managing care of this patient today ____ minutes.
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
[2023-11-25] MEDS: Naloxone HCl Nasal TAKE HOME 4 MG SPRAY 8 MG NOSTRILALT (10:26)
[2023-11-25] MEDS: Magnesium Hydrox/Alum Hydrox 30 ML ORAL.SUSP PO (11:11)
== END 2023-11-25 11:30 | disposition home or self-care (01) | DRG 885 ==
LOC: HO.ED 17:56 → HO.PADLT16 11-20 11:47
PROVIDERS: Emergency Medicine; Physician Assistant; Admitting Provider Registered Nurse; Emergency Provider Emergency Medicine; Responsible Provider Registered Nurse; Visit Provider Psychiatry & Neurology Psychiatry
DX: F33.9 Major depressive disorder, recurrent, unspecified (principal); R45.851 Suicidal ideations; F17.210 Nicotine dependence, cigarettes, uncomplicated; Z71.6 Tobacco abuse counseling; F14.10 Cocaine abuse, uncomplicated; F11.90 Opioid use, unspecified, uncomplicated; Z20.822 Contact with and (suspected) exposure to COVID-19; F19.10 Other psychoactive substance abuse, uncomplicated; Z91.199 Patient's noncompliance with other medical treatment and regimen due to unspecified reason; Z79.899 Other long term (current) drug therapy
CPT/HCPCS: 36415; 80053; 80061; 80143; 80179; 80307; 81001; 85025; 87635; 93005; 99285; S9485

== ENCOUNTER → 2023-11-19 15:30 | Outpatient (BNV) | payer OTHER, SELFPAY | PROVIDERS: Emergency Provider Emergency Medicine; Visit Provider Internal Medicine | DX: R94.31 Abnormal electrocardiogram [ECG] [EKG] (principal) | CPT/HCPCS: 93010 ==

== ENCOUNTER → 2023-11-20 11:43 | Outpatient (BNV) | payer OTHER, SELFPAY | PROVIDERS: Admitting Provider Registered Nurse; Emergency Provider Emergency Medicine; Responsible Provider Registered Nurse; Visit Provider Registered Nurse | DX: F33.2 Major depressive disorder, recurrent severe without psychotic features (principal); F14.10 Cocaine abuse, uncomplicated; F11.90 Opioid use, unspecified, uncomplicated | CPT/HCPCS: 90792; 99231; 99232; 99238; 99499 ==